=== PATIENT | male | born 1995 | race Caucasian/White ===

== ENCOUNTER 2017-04-29 20:06 | Emergency (ER) | payer MEDICAID, OTHER ==
[~2017-04-29] VITALS: Ht 177.8 cm; Wt 77.1 kg
--- NOTE | 2017-04-29 20:27 | NUR ---
edd sauceda at bedside to junior mattson.
[2017-04-29] MEDS ORDERED: ACETAMINOPHEN ES 500 MG TABLET ONE (20:40)
[2017-04-29] MEDS ORDERED: ONDANSETRON 4 MG TAB.RAPDIS ONE (20:40)
--- NOTE | 2017-04-29 20:55 | NUR ---
po challenge provided to pt per er md order.
[2017-04-29] MEDS ORDERED: ELECTROLYTE,ORAL 1,000 ML BOTTLE PO ONE (21:00)
[2017-04-29] MEDS ORDERED: ACETAMINOPHEN ES 500 MG TABLET PO ONE (21:00)
[2017-04-29] MEDS ORDERED: ONDANSETRON 4 MG TAB.RAPDIS SL ONE (21:00)
--- NOTE | 2017-04-29 21:17 | NUR ---
er md at bedside to re-eval pt. pending discharge. pt tolerated po challenge, no n/v noted.
--- NOTE | 2017-04-29 21:19 | NUR ---
Patient discharged to home in stable condition. Written and verbal after care instructions given. Patient verbalizes understanding of instruction. ambulatory with a steady gait
[2017-04-29 21:20] VITALS: BP 132/63
== END 2017-04-29 21:20 | disposition home or self-care (01) ==
LOC: ER 20:08
DX: B34.9 Viral infection, unspecified (principal); M54.9 Dorsalgia, unspecified; F17.200 Nicotine dependence, unspecified, uncomplicated; Z88.2 Allergy status to sulfonamides
CPT/HCPCS: 99284; A4606; Q0162; Z7610